=== PATIENT | male | born 1970 | race Caucasian/White ===

== ENCOUNTER 2023-02-24 17:42 | Emergency (ER) | payer OTHER, SELFPAY ==
[2023-02-24] VITALS (10 sets, daily range): BP systolic 129–150; BP diastolic 78–98; PULSE 81–92; RESP 14–18; TEMP 36.3; O2SAT 98–100; BMI 36.3
--- NOTE | 2023-02-24 18:17 | ED.ARRPALP ---
HPI - Arrhythmia/Palpitations General Chief Complaint: Arrhythmia/Palpitations Stated Complaint: Pain down arms, shortness of breath Time Seen by Provider: 02/24/23 18:13 History of Present Illness HPI narrative: This 52-year-old male comes in reporting onset of chest discomfort radiating down both arms. He also had some sense of increased heart rate and palpitations. He reports some nausea and lightheadedness and shortness of breath. He states that he has been under lots of stress and wonders if this is related to anxiety. Prior to this he has not had chest pain and does not describe any recent exercise or activity intolerance. He does not report any cardiac risk factors. Related Data Home Medications Medication Instructions Recorded Confirmed lisinopril 10 mg tablet 10 mg PO DAILY 02/24/23 02/24/23 metformin 500 mg tablet 500 mg PO DAILY 02/24/23 02/24/23 metoprolol succinate 50 mg 50 mg PO DAILY 02/24/23 02/24/23 tablet,extended release 24 hr Allergies Allergy/AdvReac Type Severity Reaction Status Date / Time Penicillins AdvReac Unknown Gastrointestinal Verified 02/24/23 18:00 Upset Review of Systems Status of ROS: Reports: 10 or more systems reviewed and unremarkable except as noted in History and below Narrative: Constitutional: No fevers, no weight gain or loss. Eyes: No discharge. No vision changes. HENT: No congestion, no sore throat, no ear pain. Cardiovascular: Chest discomfort and palpitations as described above. Respiratory: No shortness of breath, no wheezes, no cough. Gastrointestinal: No abdominal pain, no vomiting, no diarrhea. Genitourinary: No dysuria, no hematuria. Musculoskeletal: Normal range of motion. Skin: No rashes, no pruritis. Neurological: No dizziness, weakness, sensory change, speech change. Endo/Heme/Allergies: No bruising or bleeding. No polydipsia. Pysch: no suicidality, no insomnia. He reports lots of mental stress in his life recently. All other systems reviewed and are negative. PFS PFS Social History Smoking Status: Never smoker How often do you have a drink containing alcohol: never AUDIT-C Alcohol total score: 0 Non-prescribed substance use: denies use Exam Narrative: Exam Narrative: Constitutional: Well-developed, well-nourished, no acute distress. HEENT: Normocephalic, atraumatic. Neck: Normal range of motion. Nontender. Supple. Heart: Regular. Systolic ejection murmur. Normal rate. Intact distal pulses. Lungs: Clear to auscultation. No chest discomfort. No wheezes, rhonchi, or rales. Abdomen: Normal bowel sounds. Nontender. No rebound tenderness. Genitalia: Deferred. Back: No midline tenderness. Normal range of motion. Extremities: Normal range of motion. No injury. Skin: Intact. No rash. Warm. No erythema or pallor. Neurologic: No altered sensation. No weakness. Alert and oriented. Psychiatric: No suicidality. No insomnia. He does report anxiety symptoms. Nursing notes and vitals signs are reviewed. Const: Vital Signs, click to edit/add: Vital Signs - 24 hr 02/24/23 18:01 02/24/23 18:19 02/24/23 18:20 Temperature 97.3 F L Pulse Rate 89 88 Pulse Rate [Pulse Oximeter] 86 Respiratory Rate 14 Blood Pressure 134/78 Blood Pressure [Ri ght Upper Arm] 143/86 H Pulse Oximetry 99 100 100 Oxygen Delivery Me thod Room Air 02/24/23 18:30 02/24/23 18:32 02/24/23 18:33 Temperature Pulse Rate 92 90 87 Pulse Rate [Pulse Oximeter] Respiratory Rate Blood Pressure 150/98 H Blood Pressure [Ri ght Upper Arm] Pulse Oximetry 98 99 99 Oxygen Delivery Me thod 02/24/23 19:00 02/24/23 19:02 Temperature Pulse Rate 83 81 Pulse Rate [Pulse Oximeter] Respiratory Rate Blood Pressure 129/86 Blood Pressure [Ri ght Upper Arm] Pulse Oximetry 100 98 Oxygen Delivery Me thod Course Vital Signs Vital signs: Initial Vital Signs Temperature 97.3 F L 02/24/23 18:01 Temperature Source Temporal Artery Scan 02/24/23 18:01 Pulse Rate 86 02/24/23 18:01 Pulse Rhythm Regular 02/24/23 18:01 Respiratory Rate 14 02/24/23 18:01 Blood Pressure 143/86 H 02/24/23 18:01 Blood Pressure Mean 105 02/24/23 18:01 Blood Pressure Position Sitting 02/24/23 18:01 Pulse Oximetry 99 02/24/23 18:01 Oxygen Delivery Method Room Air 02/24/23 18:01 Vital Signs Temperature 97.3 F L 02/24/23 18:01 Pulse Rate 86 02/24/23 18:01 Respiratory Rate 14 02/24/23 18:01 Blood Pressure 143/86 H 02/24/23 18:01 Pulse Oximetry 99 02/24/23 18:01 Oxygen Delivery Method Room Air 02/24/23 18:01 Temperature 97.3 F L 02/24/23 18:01 Pulse Rate 81 02/24/23 19:02 Respiratory Rate 14 02/24/23 18:01 Blood Pressure 129/86 02/24/23 19:02 Pulse Oximetry 98 02/24/23 19:02 Oxygen Delivery Method Room Air 02/24/23 18:01 MDM - Arrhythmia/Palpitations MDM Narrative Medical decision making narrative: This patient reports some chest discomfort with palpitations and pain radiating into his arms bilaterally. He attributes this to stress as he has lots of mental stress recently. And EKG is obtained which shows normal sinus rhythm without any evidence of ST or T-wave abnormality. Lab results also returned with reassuring findings. His troponin is 0. His symptoms are likely amplified by anxiety symptoms and may in fact be caused by this. He is reassured with the lab and imaging results done today. He is okay to be discharged home. Lab Data Labs: Lab Results 02/24/23 Range/Units 18:55 WBC 5.90 (4.50-11.00) K/uL RBC 4.58 (4.30-5.90) m/uL Hgb 12.2 L (13.5-17.5) gm/dL Hct 37.7 (37.0-53.0) % MCV 82 (80-100) fL MCH 27 (26-34) pg MCHC 32 (32-36) gm/dL RDW Coeff of Pastor 15.0 (11.5-15.5) % Plt Count 337 (140-440) K/uL Neut % (Auto) 73.3 H (42.0-72.0) % Lymph % (Auto) 16.4 L (20-44) % Boyd % (Auto) 8.5 (0.0-11.0) % Eos % (Auto) 1.5 (0.0-7.0) % Baso % (Auto) 0.3 (0.0-3.0) % Neut # (Auto) 4.30 (1.7-7.0) K/uL Lymph # (Auto) 1.00 (0.90-2.90) K/uL Boyd # (Auto) 0.50 (0.00-0.90) K/UL Eos # (Auto) 0.09 (0.00-0.50) K/uL Baso # (Auto) 0.02 (0.00-0.30) K/uL Abs Immat Gran (auto) 0.00 (0.00-0.30) K/uL Imm/Tot Granulo (auto) 0.0 % Sodium 139 (135-149) mmol/L Potassium 4.0 (3.6-5.1) mmol/L Chloride 104 (96-114) mmol/L Carbon Dioxide 23 (20-32) mmol/L Anion Gap 12 (7-15) mEq/L BUN 13 (7-30) mg/dL Creatinine 0.6 (0.5-1.5) mg/dL Estimated Creat Clear 156.88 Estimated GFR 118 ml/min Glucose 99 (60-115) mg/dL Calcium 9.4 (8.4-10.6) mg/dL POC Troponin I 0.00 L (0.01-0.04) ng/ml ECG Data Attestation: I personally reviewed and interpreted this ECG as follows: Interpretation: Normal sinus rhythm. Rate is 77 beats per minute. There are no ST or T-wave abnormalities. Discharge Plan Discharge Clinical Impression: Anxiety, Atypical chest pain Patient Disposition: Home, Self-Care Condition: Improved Additional Instructions: Continue current plans. Follow up with MD for ongoing management. Return if symptoms are recurrent or worsening. Prescriptions: No Action metoprolol succinate 50 mg tablet extended release 24 hr 50 mg PO DAILY lisinopril 10 mg tablet 10 mg PO DAILY metformin 500 mg tablet 500 mg PO DAILY Stand Alone Forms: [employer] Info Instructions
[2023-02-24 19:09] LABS: Basophils Absolute Auto 0.02 K/uL (0.00-0.30); Basophils Percent Auto 0.3 % (0.0-3.0); Eosinophils Absolute Auto 0.09 K/uL (0.00-0.50); Eosinophils Percent Auto 1.5 % (0.0-7.0); Hematocrit 37.7 % (37.0-53.0); Hemoglobin* 12.2 gm/dL (13.5-17.5); Lymphocytes Percent Auto 16.4 % (20-44); Mean Corpuscular HGB Conc 32 gm/dL (32-36); Mean Corpuscular Hemoglobin 27 pg (26-34); Mean Corpuscular Volume 82 fL (80-100); Monocytes Percent Auto 8.5 % (0.0-11.0); Neutrophils Percent Auto 73.3 % (42.0-72.0); Platelet Count* 337 K/uL (140-440); Red Blood Count 4.58 m/uL (4.30-5.90)
[2023-02-24 19:11] LABS: Chloride* 104 mmol/L (96-114)
[2023-02-24 19:12] LABS: Sodium* 139 mmol/L (135-149)
[2023-02-24 19:14] LABS: Creatinine* 0.6 mg/dL (0.5-1.5); Est. Creatinine Clearance* 156.88; Estimated Glomerular Filt Rate 118 ml/min
[2023-02-24 19:15] LABS: Anion Gap 12 mEq/L (7-15); Blood Urea Nitrogen* 13 mg/dL (7-30); Calcium* 9.4 mg/dL (8.4-10.6); Carbon Dioxide* 23 mmol/L (20-32); Glucose* 99 mg/dL (60-115)
[2023-02-24 19:19] LABS: Slide Review Reflex No
== END 2023-02-24 19:49 | disposition home or self-care (01) ==
PROVIDERS: Emergency Provider Emergency Medicine Emergency Medical Services
DX: F41.9 Anxiety disorder, unspecified (principal); R07.9 Chest pain, unspecified
CPT/HCPCS: 36415; 80048; 84484; 85025; 93005; 99284